=== PATIENT | male | born 1990 | race Caucasian/White ===

== ENCOUNTER 2022-09-27 16:03 | Outpatient (CLI) | payer OTHER, BC, SELFPAY | END 2022-09-27 16:04 | disposition home or self-care (01) | LOC: AMB 10-15 12:04 | PROVIDERS: Visit Provider Family Medicine | DX: T63.441A Toxic effect of venom of bees, accidental (unintentional), initial encounter (principal); R42 Dizziness and giddiness; Y92.9 Unspecified place or not applicable | CPT/HCPCS: A0425; A0429 ==

== ENCOUNTER 2022-09-27 16:42 | Emergency (ER) | payer OTHER, BC, SELFPAY ==
[2022-09-27] VITALS (16 sets, daily range): BP systolic 105–153; BP diastolic 63–106; PULSE 76–91; RESP 12–20; TEMP 36.1; O2SAT 95–100; BMI 35.9
--- NOTE | 2022-09-27 16:47 | ED_ITS ---
HPI - General Adult General Time Seen by Provider: 16:47 Date Seen: 09/27/22 Chief complaint: Allergic Reaction Stated complaint: Allergic reaction bee sting Time Seen by Provider: 09/27/22 16:46 Source: patient, EMS and RN notes reviewed Mode of arrival: EMS Limitations: no limitations History of Present Illness HPI narrative: Patient is a 32-year-old male brought in by EMS on a [employer] after probable Hymenoptera sting. 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 He turned to look to his computer, started feeling dizzy, like he might pass out. He pulled over, got out of the car. First responders run able to get a blood pressure on this patient, EMS on arrival maybe got a systolic of 80. Patient was given 50 mg IM Benadryl and 0.3 mg of epinephrine. They were unable to given IV and thus this was all given injectable. He was complaining throat swelling initially. He has had no nausea vomiting, does not feel he has a rash or feeling itchy. Never felt like he was having any difficulty breathing. He has not had a history of bug bite reactions before, no Hymenoptera reactions, no anaphylaxis. He has been bit by Hymenoptera before but has only had some local site reactions. On arrival his blood pressure is now 117/62, patient is feeling better. He is not feeling throat swelling, not feeling dizzy or like he is going to pass out. complaint: Anaphylaxis Related Data Previous Rx's Medication Instructions Recorded epinephrine 0.3 mg/0.3 mL 0.3 mg (0.3 mL) IM Q5-15M PRN #2 ea 09/27/22 injection, auto-injector (EpiPen) prednisone 20 mg tablet 20 mg PO BID #6 tabs 09/27/22 Allergies Allergy/AdvReac Type Severity Reaction Status Date / Time bee venom protein (honey bee) Allergy Intermediate Hypotension Verified 09/27/22 16:58 Penicillins Allergy Intermediate Unknown Verified 09/27/22 16:58 Review of Systems Status of ROS: Reports: 6 or more systems reviewed and unremarkable except as noted in History and below PFSH PFSH Social History Smoking Status: Former smoker Do you use any of these nicotine containing products: Smokeless Tobacco Second hand tobacco smoke exposure: No How often do you have a drink containing alcohol: 2-3 times a week How many standard drinks containing alcohol do you have on a typical day: 1 or 2 How often do you have six or more drinks on one occasion: Less than monthly AUDIT-C Alcohol total score: 4 Non-prescribed substance use: denies use service: No Exam Const: Vital Signs, click to edit/add: Vital Signs - 24 hr 09/27/22 16:42 09/27/22 16:56 09/27/22 16:58 Temperature 97 F L Pulse Rate 78 86 Pulse Rate [Pulse Oximeter] 80 Respiratory Rate 20 Blood Pressure 135/81 Blood Pressure [Le ft Upper Arm] 125/106 H Pulse Oximetry 97 98 99 Oxygen Delivery Me thod Room Air 09/27/22 17:00 09/27/22 17:02 Temperature Pulse Rate 82 83 Pulse Rate [Pulse Oximeter] Respiratory Rate Blood Pressure 138/90 H Blood Pressure [Le ft Upper Arm] Pulse Oximetry 99 100 Oxygen Delivery Me thod Documenting provider has reviewed patient's vital signs: yes Common normals: no apparent distress, average body habitus, oriented x3, no limitations, alert and well nourished General appearance: cooperative, comfortable and disheveled (In work clothes) Nutritional appearance: overweight HENMT: Common normals: normocephalic, head/scalp atraumatic, hearing grossly normal bilaterally, external ears normal, external nose normal, nasal mucous membranes and turbinates normal, moist oral mucous membranes, oropharynx normal, dentition normal and gingiva normal Head and scalp: normocephalic and atraumatic Face and sinus: normal facial exam Nose: external nose normal and nasal mucous membranes and turbinates normal External ear: external ears normal Throat: posterior oropharynx normal and uvula midline Other: He has no visible oral pharyngeal swelling, speech is normal no hoarseness. Eye: Common normals: PERRL, EOMs intact bilaterally, conjunctivae normal and no scleral icterus Conjunctiva: conjunctiva(e) normal Pupil: PERRL Neck & C-Spine: Common normals: full ROM, no lymphadenopathy and supple Resp: Common normals: normal respiratory effort, no retractions, no use of accessory muscles and clear to auscultation bilaterally Auscultation: clear to auscultation bilaterally Cardio: Common normals: regular rate, regular rhythm, S1 normal heart sound, S2 normal heart sound, no gallops, no clicks and no murmurs Rate: regular rate Rhythm: regular rhythm Heart sounds: S1 normal and S2 normal GI: Common normals: Normal to inspection, nondistended, normoactive bowel sounds present, soft to palpation, non-tender, no hepatosplenomegaly and no masses Palpation: soft and no hepatosplenomegaly Extremity: Other: See small pinkish raised area without any retained foreign body in his right volar upper forearm where the bug bite was. No significant swelling. Skin visualized without any rash or your urticaria. Neuro: Common normals: oriented x3, moves all extremities, no focal motor deficits and no sensory deficits noted Sensorium/orientation: alert Course Course Hospital Course: Patient will be monitored on cardiac monitoring, pulse oximetry. Will try to establish an IV so that we can give him 10 mg IV dexamethasone, 20 mg IV famotidine and 10 mg oral Zyrtec. He will need to be monitored to ensure that there is no rebound symptoms. It is reviewed with patient that he is going to need to carry an EpiPen for future use. Will also recommend that he see an food service employee on an outpatient basis. Reevaluation(s) Time of Reevaluation #1: 18:53 Reevaluation #1: Have reviewed with patient and his possibility of rebound reactions. He is requesting to go, states he feels fine. They do understand the rationale for watching longer and understand rebound from numb non from my discussion with them. They do have Benadryl at home, he does not want to stay any longer. Vital Signs Vital signs: Initial Vital Signs Temperature 97 F L 09/27/22 16:42 Temperature Source Temporal Artery Scan 09/27/22 16:42 Pulse Rate 80 09/27/22 16:42 Respiratory Rate 20 09/27/22 16:42 Blood Pressure 125/106 H 09/27/22 16:42 Blood Pressure Mean 112 H 09/27/22 16:42 Pulse Oximetry 97 09/27/22 16:42 Oxygen Delivery Method Room Air 09/27/22 16:42 Vital Signs Temperature 97 F L 09/27/22 16:42 Pulse Rate 80 09/27/22 16:42 Respiratory Rate 20 09/27/22 16:42 Blood Pressure 125/106 H 09/27/22 16:42 Pulse Oximetry 97 09/27/22 16:42 Oxygen Delivery Method Room Air 09/27/22 16:42 Temperature 97 F L 09/27/22 16:42 Pulse Rate 83 09/27/22 17:02 Respiratory Rate 20 09/27/22 16:42 Blood Pressure 138/90 H 09/27/22 17:02 Pulse Oximetry 100 09/27/22 17:02 Oxygen Delivery Method Room Air 09/27/22 16:42 Critical Care Time Critical Care Time Critical Care Time: Yes Attestation: The patient required my highest level preparedness to intervene emergently and I personally spent this critical care time directly and personally managing the patient. This critical care time included: Obtaining a history; Examining the patient; Pulse oximetry; Ordering and reviewing of studies; Arranging urgent treatment with development of a management plan; Evaluation of patients response to treatment; Frequent reassessment discussions with other providers. This critical care time was performed to assess and manage the high probability of imminent life-threatening deterioration that could result in multiorgan failure. It was exclusive of separate billable procedures and treating other patients and teaching time. Total Critical Care Time in Minutes: 30 Discharge Plan Discharge Clinical Impression: Anaphylaxis Patient Disposition: Home, Self-Care Condition: Stable Instructions: Insect Bite or Sting (ED), Anaphylaxis (ED) Additional Instructions: Need to carry an EpiPen with you in case you are bit by stinging insect in the future. If there is any concern for any reaction, it is better to air on the side of taking the epinephrine. If you do need epinephrine injection, we do recommend being evaluated in the emergency department setting. For this episode, do recommend prednisone as prescribed, start oral dose tomorrow. Recommend taking daily Claritin or Zyrtec which is [id number] for the next 3-5 days. Can use Benadryl as needed for any ongoing itching or if you do develop any hives or rash. There is any concern about recurrent reaction with any oral pharyngeal swelling, throat tightening, difficulty breathing, dizziness or nausea, do recommend emergent re-evaluation and do call the ambulance. Do recommend referral to Allergy, this can be obtained through your primary care provider. Activity Level: Activity as Tolerated Prescriptions: New prednisone 20 mg tablet 20 mg PO BID Qty: 6 0RF epinephrine [EpiPen] 0.3 mg/0.3 mL auto-injector 0.3 mg IM Q5-15M PRNQty: 2 1RF Rx Instructions: do not exceed 3 doses per episode Stand Alone Forms: [facility] Info Instructions
--- NOTE | 2022-09-27 17:12 | ED.NURSE ---
pt has wallet, work cell phone, bracelet, and keys. pt is aware that his boss has is personal cell phone.
[2022-09-27] MEDS: CETIRIZINE HCL 10 MG TABLET PO (17:47)
[2022-09-27] MEDS: dexAMETHasone 10 MG/ML inj IVP (17:47)
[2022-09-27] MEDS: FAMOTIDINE 10 MG/ML inj 20 MG IVP (17:47)
== END 2022-09-27 19:36 | disposition home or self-care (01) ==
PROVIDERS: Emergency Provider Family Medicine
DX: T63.461A Toxic effect of venom of wasps, accidental (unintentional), initial encounter (principal); S51.851A Open bite of right forearm, initial encounter
CPT/HCPCS: 96374; 96375; 99284; 99291; A9270; J1100; S0028